=== PATIENT | male | born 2000 | race African-American/Black ===

== ENCOUNTER 2024-05-25 19:14 | Emergency (ER) | payer MEDICAID ==
[~2024-05-25] VITALS: Ht 170.2 cm; Wt 63.5 kg
[2024-05-25] MEDS: IV NS 0.9% 1,000 ML BAG IV ONE (21:11)
[2024-05-25] MEDS ORDERED: PANTOPRAZOLE 40 MG VIAL ONE (21:12)
[2024-05-25 21:16] LABS: BASOPHILS # (AUTO) 0.1 K/uL (0.0-0.2); BASOPHILS % (AUTO) 0.8 % (0.0-2.0); EOSINOPHILS # (AUTO) 0.2 K/uL (0.0-0.7); EOSINOPHILS % (AUTO) 2.1 % (0.0-6.0); HEMATOCRIT 45 % (39-51); HEMOGLOBIN 15.3 g/dL (13.5-17.5); LYMPHOCYTES # (AUTO) 3.1 K/uL (0.8-4.8); LYMPHOCYTES % (AUTO) 38.6 % (20.0-44.0); MEAN CORPUSCULAR HEMOGLOBIN 32 PG (26.0-33.0); MEAN CORPUSCULAR HGB CONC 34 g/dl (31.0-36.0); MEAN CORPUSCULAR VOLUME 92 fL (80-96); MONOCYTES % (AUTO) 11.8 % (2.0-12.0); NEUTROPHILS # (AUTO) 3.8 K/uL (1.8-8.9); NEUTROPHILS % (AUTO) 46.7 % (43.0-81.0); PLATELET COUNT (AUTO) 277 K/uL (150-450); RED BLOOD CELL COUNT(AUTO) 4.86 MIL/uL (4.5-6.0); RED CELL DISTRIBUTION WIDTH 12.1 % (11.5-15.0); WHITE BLOOD COUNT (AUTO) 8.1 K/uL (4.3-11.0)
[2024-05-25] MEDS: PANTOPRAZOLE 40 MG VIAL IV ONE (21:21)
[2024-05-25 21:40] LABS: ALBUMIN 4.5 g/dL (3.4-5.0); BILIRUBIN,DIRECT 0.2 mg/dL (0.0-0.2); BILIRUBIN,TOTAL 0.8 mg/dL (0.2-1.0); CALCIUM, SERUM 9.8 mg/dL (8.5-10.1); CREATININE 1.4 mg/dL (0.6-1.3); TOTAL PROTEIN, SERUM 8.1 g/dL (6.4-8.2)
[2024-05-25] MEDS ORDERED: PANT40TA2 PO (21:42)
[2024-05-25 22:04] VITALS: BP 134/78; TEMP 98.6; O2SAT 98
== END 2024-05-25 22:06 | disposition home or self-care (01) ==
LOC: ER 19:17
DX: R10.13 Epigastric pain (principal); J45.909 Unspecified asthma, uncomplicated
CPT/HCPCS: 99285; 96374; 76700; 96361; 85025; 80048; 83690; 80076; 36415; J7030; J2470; A4223